=== PATIENT | female | born 1955 | race Caucasian/White ===

== ENCOUNTER 2019-03-07 11:43 | Inpatient (IN) | payer MEDICARE, BC ==
[2019-03-07] MEDS ORDERED: TYLENOL 325 MG PO PRN (12:48)
[2019-03-07] MEDS ORDERED: Lactated Ringers 1,000 ML IV SCH (13:00)
[2019-03-07 13:02] LABS: Hematocrit 32.8 % (35-47); Hemoglobin 11.1 gm/dl (12.0-16.0); Mean Cell Volume 88.2 fl (78-100); Mean Corpuscular Hemoglobin 29.8 pg (26-32); Mean Corpuscular Hgb Concent. 33.8 g/dl (32-36); Mean Platelet Volume 8.7 fl (6-9.5); Platelet Count 619 K/mm3 (150-450); Red Blood Count 3.72 M/mm3 (4.1-5.4); Red Cell Distribution Width 13.2 % (11.5-14.0); White Blood Count 15.3 K/mm3 (4.0-10.5)
[2019-03-07] MEDS: solu-MEDROL 40 MG IV SCH ×2 (13:06→22:01)
[2019-03-07 13:09] LABS: Appearance CLEAR (CLEAR); Bacteria RARE /HPF (NEGATIVE); Bilirubin NEGATIVE (NEGATIVE); Blood SMALL Ery/ul (0-5); Glucose NEGATIVE (NEGATIVE); Ketones NEGATIVE (NEGATIVE); Leukocyte Esterase NEGATIVE (NEGATIVE); Mucus SLIGHT /HPF (NEGATIVE); Nitrite NEGATIVE (NEGATIVE); Protein,Urine Dip 100 (Negative); Specific Gravity 1.009 (1.005-1.025); Urobilinogen NEGATIVE mg/dL (0-1)
[2019-03-07] MEDS: ROCEPHIN 1 Gm-D5w 50 ml Bag** 1 G/50 ML IVPB IV SCH (13:13)
[2019-03-07 13:26] LABS: ALBUMIN 3.6 g/dL (3.5-5.0); ALKALINE PHOSPHATASE 245 U/L (38-126); ANION GAP 22.8 MEQ/L (5-15); BLOOD UREA NITROGEN 9 mg/dL (7-17); CHLORIDE 91 mmol/L (98-107); Calcium 8.8 mg/dL (8.4-10.2); Carbon Dioxide 18 mmol/L (22-30); Creatinine 1 0.44 mg/dL (0.52-1.04); Glucose 158 mg/dL (74-106); Potassium 4.4 mmol/L (3.5-5.1); SGOT/AST 72 U/L (14-36); SGPT/ALT 91 U/L (0-35); SODIUM 128 mmol/L (137-145); Total Protein 7.2 g/dL (6.3-8.2)
[2019-03-07 14:07] LABS: Lymphocytes 12 % (24-44); Monocyte 3 % (0.0-12.0); Neutrophils 85 % (36.0-66.0); Total Cells Counted 100
[2019-03-07 14:09] LABS: Platelet Estimate NORMAL (NORMAL)
[2019-03-07] MEDS: PROVENTIL 2.5 MG/3 ML NEB IH SCH ×2 (14:47→20:29)
[2019-03-07] MEDS: Zithromax 500 MG/ 250 ML NaCl Premix 500 MG/250 ML IVPB IV SCH (15:14)
[2019-03-07 15:23] LABS: Lactic Acid 2.8 (0.4-2.0)
[2019-03-07] MEDS ORDERED: Sodium Chloride 0.9% 1000 ML 1,000 ML IV STA (16:54)
[2019-03-07] MEDS: Sodium Chloride 0.9% 1000 ML 1,000 ML IV SCH ×2 (17:33→23:19)
[2019-03-07] MEDS ORDERED: APRESOLINE 20 MG/ML INJ IV PRN (17:40)
--- NOTE | 2019-03-07 17:40 | PCM.HP ---
History of Present Illness - Chief Complaint Chief Complaint: lingular pneumonia failed o/p History of Present Illness: is a 64 year old female pt with no local MD, healthy, who was seen in today and admitted for pneumonia. She has no previous hx lung dz and has not been a smoker. Nine days ago she started running temp to 101.8. One week ago she was seen in clinic by pam Calderon with bronchitis and sent home with keflex, which she has been taking TID. She has been having cough and decreased appetite. Some diarrhea over the past 2 days. Wheezing x 2 d. In her CXR showed pna so I was called for direct admission. - Review of Systems Respiratory: Cough, Wheezing Abdominal/Gastrointestinal: Diarrhea, Appetite Changes All Other Systems: Reviewed and Negative Medications & Allergies Home Medications: Home Medication List Cephalexin Mh 500 mg [Keflex 500 mg] 1 cap PO TID 03/07/19 [History Confirmed 03/07/19] Multivitamin W-Minerals/Lutein [Centrum Silver Tablet] 1 tab PO DAILY 03/07/19 [ History Confirmed 03/07/19] Allergies/Adverse Reactions: Allergies Allergy/AdvReac Type Severity Reaction Status Date / Time ampicillin AdvReac Difficulty Verified 03/07/19 13:06 Breathing erythromycin base AdvReac Stomach Verified 03/07/19 13:06 Cramps Penicillins AdvReac Verified 03/07/19 13:35 - Past Medical History Past Medical History: Yes Neurological History: No Pertinent History ENT History: No Pertinent History Cardiac History: Hypertension Respiratory History: Bronchitis, Pneumonia Endocrine Medical History: No Pertinent History Musculoskelatal History: Arthritis GI Medical History: No Pertinent History History: Other Pyscho-Social History: No Pertinent History Reproductive Disorders: Other Comment: renal calculi; cervical dysplasia; total ankle dislocation (left) - Female History Are you now?: No - Past Surgical History Past Surgical History: Yes Neuro Surgical History: No Pertinent History Cardiac History: No Pertinent History Respiratory Surgery: No Pertinent History GI Surgical History: No Pertinent History Genitourinary Surgical Hx: No Pertinent History Musculskeletal Surgical Hx: Orthopedic Surgery Female Surgical History: Dilation & Curettage Other Surgical History: ankle surgery - Social History Smoking Status: Never smoker Exposure to second hand smoke: No Alcohol: Rarely Drug Use: none - Physical Exam Vital Signs: Vital Signs - 24 hr Temp Pulse Resp BP Pulse Ox 03/07/19 16:14 98.6 F 106 H 20 166/75 94 L 03/07/19 14:50 103 H 18 96 03/07/19 13:41 100.9 F 123 H 20 175/89 90 L 03/07/19 12:33 100.9 F 90 20 175/89 90 L General Appearance: no apparent distress, alert Neurologic Exam: oriented x 3, cooperative Eye Exam: eyes nml inspection Ears, Nose, Throat Exam: moist mucous membranes Neck Exam: normal inspection, non-tender, No lymphadenopathy Respiratory Exam: lungs clear, diminished breath sounds, wheezing (faint scattered), No crackles/rales, No rhonchi Cardiovascular Exam: regular rate/rhythm, normal heart sounds, No murmur Gastrointestinal/Abdomen Exam: soft, normal bowel sounds, No tenderness, No distention, No mass, No guarding, No rebound Back Exam: normal inspection, No CVA tenderness, No rash Extremity Exam: normal inspection, No pedal edema, No swelling Skin Exam: normal color, warm, dry, No rash Results - Labs Lab/Micro Results: Lab Results-Last 24 Hours 03/07/19 03/07/19 03/07/19 Range/Units 12:13 12:55 12:55 WBC 15.3 H (4.0-10.5) K/mm3 RBC 3.72 L (4.1-5.4) M/mm3 Hgb 11.1 L (12.0-16.0) gm/dl Hct 32.8 L (35-47) % MCV 88.2 (78-100) fl MCH 29.8 (26-32) pg MCHC 33.8 (32-36) g/dl RDW 13.2 (11.5-14.0) % Plt Count 619 H (150-450) K/mm3 MPV 8.7 (6-9.5) fl Segmented Neutrophils 85 H (36.0-66.0) % Lymphocytes (Manual) 12 L (24-44) % Monocytes (Manual) 3 (0.0-12.0) % Platelet Estimate NORMAL (NORMAL) RBC Morphology NORMAL Sodium 128 L (137-145) mmol/L Potassium 4.4 (3.5-5.1) mmol/L Chloride 91 L (98-107) mmol/L Carbon Dioxide 18 L (22-30) mmol/L Anion Gap 22.8 H (5-15) MEQ/L BUN 9 (7-17) mg/dL Creatinine 0.44 L (0.52-1.04) mg/dL Estimated GFR > 60.0 ML/MIN Glucose 158 H (74-106) mg/dL Lactic Acid (0.4-2.0) Calcium 8.8 (8.4-10.2) mg/dL Total Bilirubin 0.80 (0.2-1.3) mg/dL AST 72 H (14-36) U/L ALT 91 H (0-35) U/L Alkaline Phosphatase 245 H (38-126) U/L Serum Total Protein 7.2 (6.3-8.2) g/dL Albumin 3.6 (3.5-5.0) g/dL Urine Color YELLOW (YELLOW) Urine Appearance CLEAR (CLEAR) Urine pH 5.0 (5-6) Ur Specific Penelope 1.009 (1.005-1.025) Urine Protein 100 (Negative) Urine Ketones NEGATIVE (NEGATIVE) Urine Blood SMALL (0-5) Galileo/ul Urine Nitrite NEGATIVE (NEGATIVE) Urine Bilirubin NEGATIVE (NEGATIVE) Urine Urobilinogen NEGATIVE (0-1) mg/dL Ur Leukocyte Esterase NEGATIVE (NEGATIVE) Urine WBC (Auto) 3-5 (0-5) /HPF Urine RBC (Auto) 3-5 (0-2) /HPF U Epithel Cells (Auto) NONE (FEW) /HPF Urine Bacteria (Auto) RARE (NEGATIVE) /HPF Urine Mucus (Auto) SLIGHT (NEGATIVE) /HPF Urine Culture Reflexed YES (NO) Urine Glucose NEGATIVE (NEGATIVE) mg/dL 03/07/19 Range/Units 15:15 WBC (4.0-10.5) K/mm3 RBC (4.1-5.4) M/mm3 Hgb (12.0-16.0) gm/dl Hct (35-47) % MCV (78-100) fl MCH (26-32) pg MCHC (32-36) g/dl RDW (11.5-14.0) % Plt Count (150-450) K/mm3 MPV (6-9.5) fl Segmented Neutrophils (36.0-66.0) % Lymphocytes (Manual) (24-44) % Monocytes (Manual) (0.0-12.0) % Platelet Estimate (NORMAL) RBC Morphology Sodium (137-145) mmol/L Potassium (3.5-5.1) mmol/L Chloride (98-107) mmol/L Carbon Dioxide (22-30) mmol/L Anion Gap (5-15) MEQ/L BUN (7-17) mg/dL Creatinine (0.52-1.04) mg/dL Estimated GFR ML/MIN Glucose (74-106) mg/dL Lactic Acid 2.8 H (0.4-2.0) Calcium (8.4-10.2) mg/dL Total Bilirubin (0.2-1.3) mg/dL AST (14-36) U/L ALT (0-35) U/L Alkaline Phosphatase (38-126) U/L Serum Total Protein (6.3-8.2) g/dL Albumin (3.5-5.0) g/dL Urine Color (YELLOW) Urine Appearance (CLEAR) Urine pH (5-6) Ur Specific Penelope (1.005-1.025) Urine Protein (Negative) Urine Ketones (NEGATIVE) Urine Blood (0-5) Galileo/ul Urine Nitrite (NEGATIVE) Urine Bilirubin (NEGATIVE) Urine Urobilinogen (0-1) mg/dL Ur Leukocyte Esterase (NEGATIVE) Urine WBC (Auto) (0-5) /HPF Urine RBC (Auto) (0-2) /HPF U Epithel Cells (Auto) (FEW) /HPF Urine Bacteria (Auto) (NEGATIVE) /HPF Urine Mucus (Auto) (NEGATIVE) /HPF Urine Culture Reflexed (NO) Urine Glucose (NEGATIVE) mg/dL - Other Procedures and Tests Respiratory Therapy 03/07/19 07:00 Peak Expiratory Flow Rate DAILY 03/07/19 12:08 Oxygen Nasal Cannula 2 lpm 03/08/19 07:00 Respiratory Therapy Assessment DAILY Assessment/Plan (1) Pneumonia Current Visit: Yes Status: Acute Code(s): J18.9 - PNEUMONIA, UNSPECIFIED ORGANISM (2) Dehydration Current Visit: Yes Status: Acute Assessment & Plan: CO2 is 18, but her renal function is preserved. Giving 1 L NS bolus then 100cc/ hr all night and recheck in a.m. Code(s): E86.0 - DEHYDRATION (3) Elevated liver enzymes Current Visit: Yes Status: Acute Assessment & Plan: I think likely related to the dehydration. recheck in a.m. Code(s): R74.8 - ABNORMAL LEVELS OF OTHER SERUM ENZYMES
[2019-03-07 18:27] LABS: INFLUENZA A NEGATIVE (NEGATIVE); INFLUENZA B NEGATIVE (NEGATIVE); RESPIRATORY SYNCTIAL VIRUS NEGATIVE (Negative)
[2019-03-08 05:00] LABS: Hematocrit 32.1 % (35-47); Hemoglobin 10.6 gm/dl (12.0-16.0); Mean Cell Volume 89.9 fl (78-100); Mean Platelet Volume 8.6 fl (6-9.5); Platelet Count 605 K/mm3 (150-450); Red Blood Count 3.57 M/mm3 (4.1-5.4); Red Cell Distribution Width 13.2 % (11.5-14.0)
[2019-03-08 05:01] LABS: Mean Corpuscular Hemoglobin 29.6 pg (26-32)
[2019-03-08 05:06] LABS: ALBUMIN 3.5 g/dL (3.5-5.0); ALKALINE PHOSPHATASE 222 U/L (38-126); ANION GAP 17.6 MEQ/L (5-15); BLOOD UREA NITROGEN 8 mg/dL (7-17); CHLORIDE 100 mmol/L (98-107); Calcium 9.4 mg/dL (8.4-10.2); Carbon Dioxide 23 mmol/L (22-30); Creatinine 1 0.42 mg/dL (0.52-1.04); Direct Bilirubin 0.3 mg/dL (0.0-0.4); Glucose 270 mg/dL (74-106); Potassium 4.2 mmol/L (3.5-5.1); SGOT/AST 54 U/L (14-36); SGPT/ALT 102 U/L (0-35); Total Protein 7.3 g/dL (6.3-8.2)
[2019-03-08 05:11] LABS: SODIUM 136 mmol/L (137-145)
[2019-03-08] MEDS: solu-MEDROL 40 MG IV SCH ×3 (05:54→21:26)
[2019-03-08] MEDS: PROVENTIL 2.5 MG/3 ML NEB IH SCH ×4 (07:27→19:48)
[2019-03-08] MEDS: ROCEPHIN 1 Gm-D5w 50 ml Bag** 1 G/50 ML IVPB IV SCH (10:14)
[2019-03-08] MEDS: ENOXAPARIN SODIUM SQ SCH (14:05)
[2019-03-08] MEDS: Sodium Chloride 0.9% 1000 ML 1,000 ML IV SCH (14:09)
[2019-03-08] MEDS: Zithromax 500 MG/ 250 ML NaCl Premix 500 MG/250 ML IVPB IV SCH (14:10)
--- NOTE | 2019-03-08 15:54 | PCM.NOTE ---
Date and Time: 03/08/19 1545 Subjective Assessment: Has tmax 100.9 in the past 24 hours. Additionally, she woke up with a "hot flash" overnight. Has been wearing 2L NC off and on for the past 24 h. Some increased bp, but this morning was 139/65. - Review of Systems Constitutional: Fever Respiratory: Cough Objective Exam General Appearance: no apparent distress, alert Neurologic Exam: oriented x 3, cooperative Skin Exam: normal color, warm, dry, No rash Eye Exam: eyes nml inspection Ears, Nose, Throat Exam: moist mucous membranes Neck Exam: normal inspection Respiratory Exam: normal breath sounds, rhonchi (RLL), No crackles/rales, No wheezing Cardiovascular Exam: regular rate/rhythm, normal heart sounds, No murmur Extremity Exam: normal inspection, No swelling, No tenderness OBJECTIVE DATA Vital Signs: Vital Signs - 24 hr Temp Pulse Resp BP Pulse Ox 03/08/19 15:32 77 18 93 L 03/08/19 12:00 97.8 F 77 18 134/62 92 L 03/08/19 07:22 96.6 F 88 18 139/65 97 03/08/19 07:00 80 18 95 03/08/19 04:00 98.3 F 77 18 159/87 94 L 03/08/19 00:17 97.7 F 76 19 138/64 91 L 03/07/19 20:32 78 20 93 L 03/07/19 20:30 98.3 F 90 18 153/72 96 03/07/19 16:14 98.6 F 106 H 20 166/75 94 L Oxygen-Last 24 hours O2 Percentage 2 Liters = 28% Pain Assessment - Last Documented Pain Intensity 0 Pain Scale Used 0-10 Pain Scale Intake and Output: Intake & Output 03/06/19 03/07/19 03/08/19 03/09/19 11:59 11:59 11:59 11:59 Intake Total 8091 Output Total 6600 Balance 1491 Weight 71.1 kg Lab Results: Lab Results-Last 24 Hours 03/07/19 03/07/19 03/08/19 Range/Units 17:36 17:45 04:56 WBC 10.0 (4.0-10.5) K/mm3 RBC 3.57 L (4.1-5.4) M/mm3 Hgb 10.6 L (12.0-16.0) gm/dl Hct 32.1 L (35-47) % MCV 89.9 (78-100) fl MCH 29.6 (26-32) pg MCHC 33.0 (32-36) g/dl RDW 13.2 (11.5-14.0) % Plt Count 605 H (150-450) K/mm3 MPV 8.6 (6-9.5) fl Sodium (137-145) mmol/L Potassium (3.5-5.1) mmol/L Chloride (98-107) mmol/L Carbon Dioxide (22-30) mmol/L Anion Gap (5-15) MEQ/L BUN (7-17) mg/dL Creatinine (0.52-1.04) mg/dL Estimated GFR ML/MIN Glucose (74-106) mg/dL Hemoglobin A1c (4.5-6.0) % Lactic Acid 1.8 (0.4-2.0) Calcium (8.4-10.2) mg/dL Total Bilirubin (0.2-1.3) mg/dL Direct Bilirubin (0.0-0.4) mg/dL AST (14-36) U/L ALT (0-35) U/L Alkaline Phosphatase (38-126) U/L Serum Total Protein (6.3-8.2) g/dL Albumin (3.5-5.0) g/dL Influenza Type A Ag NEGATIVE (NEGATIVE) Influenza Type B Ag NEGATIVE (NEGATIVE) RSV (PCR) NEGATIVE (Negative) 03/08/19 03/08/19 Range/Units 04:56 Unknown WBC (4.0-10.5) K/mm3 RBC (4.1-5.4) M/mm3 Hgb (12.0-16.0) gm/dl Hct (35-47) % MCV (78-100) fl MCH (26-32) pg MCHC (32-36) g/dl RDW (11.5-14.0) % Plt Count (150-450) K/mm3 MPV (6-9.5) fl Sodium 136 L D (137-145) mmol/L Potassium 4.2 (3.5-5.1) mmol/L Chloride 100 (98-107) mmol/L Carbon Dioxide 23 (22-30) mmol/L Anion Gap 17.6 H (5-15) MEQ/L BUN 8 (7-17) mg/dL Creatinine 0.42 L (0.52-1.04) mg/dL Estimated GFR > 60.0 ML/MIN Glucose 270 H (74-106) mg/dL Hemoglobin A1c 6.18 H (4.5-6.0) % Lactic Acid (0.4-2.0) Calcium 9.4 (8.4-10.2) mg/dL Total Bilirubin 0.40 (0.2-1.3) mg/dL Direct Bilirubin 0.3 (0.0-0.4) mg/dL AST 54 H (14-36) U/L ALT 102 H (0-35) U/L Alkaline Phosphatase 222 H (38-126) U/L Serum Total Protein 7.3 (6.3-8.2) g/dL Albumin 3.5 (3.5-5.0) g/dL Influenza Type A Ag (NEGATIVE) Influenza Type B Ag (NEGATIVE) RSV (PCR) (Negative) Assessment/Plan (1) Pneumonia Current Visit: Yes Status: Acute Qualifiers: Pneumonia type: due to unspecified organism Laterality: left Lung location: lower lobe of lung Qualified Code(s): J18.1 - Lobar pneumonia, unspecified organism Assessment & Plan: On rocephin and zithromax day #2. Improved, but still with some O2 requirement and fever. May be able to d/c to home tomorrow if that resolves. Code(s): J18.9 - PNEUMONIA, UNSPECIFIED ORGANISM (2) Dehydration Current Visit: Yes Status: Resolved Code(s): E86.0 - DEHYDRATION (3) Elevated liver enzymes Current Visit: Yes Status: Acute Assessment & Plan: AST slightly lower, ALT slightly higher. May be related to illness. May merit further workup outpatient. Code(s): R74.8 - ABNORMAL LEVELS OF OTHER SERUM ENZYMES (4) Hyperglycemia Current Visit: Yes Status: Acute Assessment & Plan: A.m. BS was 270 - her a1c is 6.18. Will need to address with pt in a.m. Code(s): R73.9 - HYPERGLYCEMIA, UNSPECIFIED
[2019-03-09] MEDS: Sodium Chloride 0.9% 1000 ML 1,000 ML IV SCH (02:34)
[2019-03-09 04:49] LABS: Hemoglobin 10.5 gm/dl (12.0-16.0); Mean Cell Volume 91.4 fl (78-100); Mean Corpuscular Hgb Concent. 32.8 g/dl (32-36); Mean Platelet Volume 8.7 fl (6-9.5); Platelet Count 729 K/mm3 (150-450); Red Cell Distribution Width 13.6 % (11.5-14.0); White Blood Count 18.4 K/mm3 (4.0-10.5)
[2019-03-09 05:04] LABS: ALBUMIN 3.3 g/dL (3.5-5.0); ALKALINE PHOSPHATASE 183 U/L (38-126); ANION GAP 19.2 MEQ/L (5-15); BLOOD UREA NITROGEN 12 mg/dL (7-17); CHLORIDE 103 mmol/L (98-107); Calcium 9.5 mg/dL (8.4-10.2); Carbon Dioxide 21 mmol/L (22-30); Creatinine 1 0.42 mg/dL (0.52-1.04); Glucose 216 mg/dL (74-106); Potassium 4.5 mmol/L (3.5-5.1); SGOT/AST 72 U/L (14-36); SGPT/ALT 126 U/L (0-35); SODIUM 139 mmol/L (137-145); Total Protein 6.9 g/dL (6.3-8.2)
[2019-03-09] MEDS: solu-MEDROL 40 MG IV SCH ×2 (05:56→13:03)
[2019-03-09] MEDS: PROVENTIL 2.5 MG/3 ML NEB IH SCH ×3 (07:21→14:57)
--- NOTE | 2019-03-09 09:02 | PCM.DS ---
Discharge Summary Date of Admission: 03/07/19 11:51 Admitting Physician: GERARDO ROSE Primary Care Provider: GERARDO ROSE Allergies Allergies ampicillin Adverse Reaction (Verified 03/07/19 13:06) Difficulty Breathing erythromycin base Adverse Reaction (Verified 03/07/19 13:06) Stomach Cramps Penicillins Adverse Reaction (Verified 03/07/19 13:35) Hospital Summary - Hospital Course Hospital Course: Pt is 64 yo female pt with no local MD who came to after failing a course of keflex and was dx with pneumonia. Over her stay she has had some intermittent oxygen requirement. Finshing 3d of rocephin and zithromax IV here, with IV solumedrol. She has improved steadily during her stay. No fever for the last 24h and no o2 requirement. Still having some cough. Rip po. Did have an elevated BP this morning of 168/90 after her blood draw, otherwise 130s-150s systolic. Will be sent home on po cefdinir and prednisone. F/u with me in 1 wk. - Vitals & Intake/Output Vital Signs: Vital Signs Temperature 97.6 F 03/09/19 07:36 Pulse Rate 76 03/09/19 07:36 Respiratory Rate 17 03/09/19 07:36 Blood Pressure 172/76 03/09/19 07:36 O2 Sat by Pulse Oximetry 93 L 03/09/19 07:36 Oxygen-Last Documented O2 Percentage 2 Liters = 28% Intake & Output: Intake & Output 03/06/19 03/07/19 03/08/19 03/09/19 11:59 11:59 11:59 11:59 Intake Total 8091 7731 Output Total 8910 5550 Balance 1491 2181 Weight 71.1 kg - Lab Result Diagrams: 03/09/19 04:51 03/09/19 04:51 Lab Results-Last 24 Hrs: Lab Results-Last 24 Hours 03/08/19 03/09/19 03/09/19 Range/Units Unknown 04:51 04:51 WBC 18.4 H (4.0-10.5) K/mm3 RBC 3.50 L (4.1-5.4) M/mm3 Hgb 10.5 L (12.0-16.0) gm/dl Hct 32.0 L (35-47) % MCV 91.4 (78-100) fl MCH 30.0 (26-32) pg MCHC 32.8 (32-36) g/dl RDW 13.6 (11.5-14.0) % Plt Count 729 H (150-450) K/mm3 MPV 8.7 (6-9.5) fl Sodium 139 (137-145) mmol/L Potassium 4.5 (3.5-5.1) mmol/L Chloride 103 (98-107) mmol/L Carbon Dioxide 21 L (22-30) mmol/L Anion Gap 19.2 H (5-15) MEQ/L BUN 12 (7-17) mg/dL Creatinine 0.42 L (0.52-1.04) mg/dL Estimated GFR > 60.0 ML/MIN Glucose 216 H (74-106) mg/dL Hemoglobin A1c 6.18 H (4.5-6.0) % Calcium 9.5 (8.4-10.2) mg/dL Total Bilirubin 0.30 (0.2-1.3) mg/dL AST 72 H (14-36) U/L ALT 126 H (0-35) U/L Alkaline Phosphatase 183 H (38-126) U/L Serum Total Protein 6.9 (6.3-8.2) g/dL Albumin 3.3 L (3.5-5.0) g/dL Micro Results-Entire Visit: Microbiology 03/07/19 12:13 Urine Culture - Preliminary Clean Catch Midstream NO GROWTH TO DATE - Procedures and Test Procedures and Tests throughout Hospitalization: Therapy Orders & Screens 03/07/19 07:00 Peak Expiratory Flow Rate DAILY Comment: Reason For Exam: Diagnosis: lingular pneumonia failed o/p 03/07/19 12:08 Oxygen Nasal Cannula 2 lpm Comment: O2 TO KEEP SATS >90% Respiratory Nebulizer QID Comment: ALBUTEROL 03/08/19 07:00 Respiratory Therapy Assessment DAILY Comment: Diagnosis: lingular pneumonia failed o/p Discharge Exam General Appearance: no apparent distress, alert Neurologic Exam: oriented x 3, cooperative Eye Exam: eyes nml inspection Ears, Nose, Throat Exam: moist mucous membranes Neck Exam: normal inspection Respiratory Exam: normal breath sounds, rhonchi (bilat bases), No crackles/rales , No wheezing Cardiovascular Exam: regular rate/rhythm, normal heart sounds, No murmur Back Exam: normal inspection, No rash Extremity Exam: normal inspection, No pedal edema, No swelling Skin Exam: normal color, warm, dry, No rash Final Diagnosis/Problem List - Final Discharge Diagnosis/Problem (1) Pneumonia Current Visit: Yes Status: Acute Assessment & Plan: Much improved. Home after today's dose of antibiotics (rocephin and zithromax IV day #3). Code(s): J18.9 - PNEUMONIA, UNSPECIFIED ORGANISM (2) Dehydration Current Visit: Yes Status: Resolved Code(s): E86.0 - DEHYDRATION (3) Elevated liver enzymes Current Visit: Yes Status: Acute Assessment & Plan: Will need CMP in 1 week. May need liver u/s if still elevated. Code(s): R74.8 - ABNORMAL LEVELS OF OTHER SERUM ENZYMES (4) Hyperglycemia Current Visit: Yes Status: Acute Code(s): R73.9 - HYPERGLYCEMIA, UNSPECIFIED (5) Thrombocytosis Current Visit: Yes Status: Acute Assessment & Plan: Needs further OP evaluation. Recheck in 1 week. - Discharge Disposition: Home, Self-Care Condition: Good Prescriptions: New Prednisone 20 mg [Deltasone 20 mg] 20 mg PO DAILY #17 tablet Cefdinir [Omnicef] 300 mg PO BID #14 capsule Albuterol Sulfate [Ventolin Hfa] 18 gm IH QID #1 [email or web address] Continue Multivitamin W-Minerals/Lutein [Centrum Silver Tablet] 1 tab PO DAILY Discontinued Cephalexin Mh 500 mg [Keflex 500 mg] 1 cap PO TID Follow up with: GERARDO ROSE [Primary Care Provider] - 1 Week
[2019-03-09] MEDS: ROCEPHIN 1 Gm-D5w 50 ml Bag** 1 G/50 ML IVPB IV SCH (11:13)
[2019-03-09 12:27] VITALS: BP 158/98
[2019-03-09] MEDS: Zithromax 500 MG/ 250 ML NaCl Premix 500 MG/250 ML IVPB IV SCH (13:03)
[2019-03-09] MEDS: ENOXAPARIN SODIUM SQ SCH (13:15)
[2019-03-09 15:02] VITALS: PULSE 79; O2SAT 96
== END 2019-03-09 16:15 | disposition home or self-care (01) | DRG 195 ==
LOC: MED SURG 11:51 → OBSVTOIN 11:51
PROVIDERS: ADMIT Family Medicine; ATTEND Family Medicine
DX: J18.9 Pneumonia, unspecified organism (principal); E86.0 Dehydration; R19.7 Diarrhea, unspecified; R74.8 Abnormal levels of other serum enzymes; R73.9 Hyperglycemia, unspecified; I10 Essential (primary) hypertension; D47.3 Essential (hemorrhagic) thrombocythemia; Z79.899 Other long term (current) drug therapy
CPT/HCPCS: 36415; 80048; 80053; 80076; 81001; 83036; 83605; 85025; 85027; 87086; 87631; 94150; 94640; 94760; J0456; J0696; J2920; J7609; A9270-GY

== ENCOUNTER 2021-02-20 16:22 | Emergency (ER) | payer MEDICARE, OTHER ==
[2021-02-20 17:19] VITALS: O2SAT 98
[2021-02-20 18:46] VITALS: BP 176/92; PULSE 88
--- NOTE | 2021-02-20 18:47 | ERPHSYRPT ---
- History of Present Illness Time Seen by Provider: 02/20/21 16:52 Source: patient Exam Limitations: no limitations Patient Subjective Stated Complaint: Pt states I was using hedge trimmers and I punctured my index finger on my left hand." Triage Nursing Assessment: Pt presented alert and oriented X 3, skin wpd Pt ambulates with an upright steady gait, t has an evulsion noted to the index finger on her left hand. Physician History: 66 years old right-handed dominant female presented to the ER after she accidentally had a small cut/incised while trimming trees on the left index finger. There was bleeding initially but stopped prior to applying pressure. No difficulty movements of finger at interphalangeal and metacarpophalangeal joint. No numbness or tingling. Not on any blood thinners. Up-to-date with tetanus. Occurred: hours ago (1) Method of Injury: incised Quality: sharpness Severity of Pain-Max: moderate Severity of Pain-Current: mild Extremities Pain Location: 2nd finger: left Modifying Factors: Worsens With: movement Associated Symptoms: none Allergies/Adverse Reactions: ampicillin Adverse Reaction (Verified 03/07/19 13:06) Difficulty Breathing erythromycin base Adverse Reaction (Verified 03/07/19 13:06) Stomach Cramps Penicillins Adverse Reaction (Verified 03/07/19 13:35) Home Medications: Multivitamin W-Minerals/Lutein [Centrum Silver Tablet] 1 tab PO DAILY 03/07/19 [History] Hx Tetanus, Diphtheria Vaccination/Date Given: Yes (2015) Hx Influenza Vaccination/Date Given: No Hx Pneumococcal Vaccination/Date Given: No Immunizations Up to Date: Yes Travel Risk - International Travel Have you traveled outside of the country in past 3 weeks: No - Coronavirus Screening Are you exhibiting any of the following symptoms?: No Close contact with a COVID-19 positive Pt in past 14-21 Days: No - Vaccine Status Have you recieved a Covid-19 vaccination: Yes Mate Fourth: Bahu - Vaccination Dates Date of 2cond Vaccination (if applicable): 07/2020 - Review of Systems Constitutional: No Symptoms Ears, Nose, & Throat: No Symptoms Respiratory: No Symptoms Cardiac: No Symptoms Musculoskeletal: Injury Skin: Skin Lesions Neurological: No Symptoms Endocrine: No Symptoms Hematologic/Lymphatic: No Symptoms - Past Medical History Pertinent Past Medical History: Yes Neurological History: No Pertinent History ENT History: No Pertinent History Cardiac History: Hypertension Respiratory History: Bronchitis, Pneumonia Endocrine Medical History: No Pertinent History Musculoskeletal History: Arthritis GI Medical History: No Pertinent History History: Other Psycho-Social History: No Pertinent History Female Reproductive Disorders: Other Other Medical History: renal calculi; cervical dysplasia; total ankle dislocation (left) - Past Surgical History Past Surgical History: Yes Neuro Surgical History: No Pertinent History Cardiac: No Pertinent History Respiratory: No Pertinent History Gastrointestinal: No Pertinent History Genitourinary: No Pertinent History Musculoskeletal: Orthopedic Surgery Female Surgical History: Dilation & Curettage Other Surgical History: ankle surgery - Social History Smoking Status: Never smoker Exposure to second hand smoke: No Drug Use: none Patient Lives Alone: No - Nursing Vital Signs Nursing Vital Signs: Initial Vital Signs Temperature 98.1 F 02/20/21 17:12 Pulse Rate 82 02/20/21 17:12 Respiratory Rate 20 02/20/21 17:12 Blood Pressure 189/91 02/20/21 17:12 O2 Sat by Pulse Oximetry 98 02/20/21 17:12 Pain Scale Pain Intensity 1 - Physical Exam General Appearance: no apparent distress Neck Exam: normal inspection, full range of motion Cardiovascular/Respiratory Exam: normal breath sounds, regular rate/rhythm Elbow/Forearm Exam: normal inspection, non-tender, no evidence of injury Wrist Exam: normal inspection, non-tender, no evidence of injury, normal ROM Hand Exam: laceration (2 cm flap laceration left index finger without any active spurting, minimal oozing. Distal neurovascular intact. Intact range of motion interphalangeal joints and metacarpophalangeal joint.) Neuro/Tendon Exam: normal sensation, normal motor functions, normal tendon functions Mental Status Exam: alert, oriented x 3, cooperative Skin Exam: normal color SpO2 Interpretation: normal SpO2: 98 O2 Delivery: Room Air Procedures - Laceration/Wound Repair Left Finger Time of Procedure: 18:45 Wound Location: Left Wound Length (cm): 2 Wound's Depth, Shape: superficial Wound Explored: clean Irrigated: Yes Hibiclens Prep: Yes Wound Repaired With: Steri-strips, Dermabond Sterile Dressing Applied?: Yes Splint Applied?: Yes - Progress Progress: improved Progress Note: 02/20/21 18:46 Superficial flap laceration, discussed with patient about suture versus glue with Steri-Strips and she wants to glue with Steri-Strips which is repaired. She is up-to-date with tetanus. Has intact range of motion, and intact distal neurovascular. Counseled pt/family regarding: diagnosis, need for follow-up - Departure Departure Disposition: Home Clinical Impression: Finger laceration Qualifiers: Encounter type: initial encounter Finger: index finger Damage to nail status: without damage Foreign body presence: without foreign body Laterality: left Qualified Code(s): S61.211A - Laceration without foreign body of left index finger without damage to nail, initial encounter Condition: Stable Critical Care Time: No Referrals: GERARDO PARRA [Primary Care Provider] - Follow Up with PCP/3 days Instructions: Laceration Repair With Glue (DC) Additional Instructions: Take Tylenol/ibuprofen as needed for pain. Keep it clean. Avoid exertional activities with left hand. Follow-up with primary care for reevaluation. Return to ER for increasing pain, swelling, redness, discharge, difficulty movements of finger.
== END 2021-02-20 18:57 | disposition home or self-care (01) ==
LOC: ED 16:22
DX: S61.211A Laceration without foreign body of left index finger without damage to nail, initial encounter (principal); W29.3XXA Contact with powered garden and outdoor hand tools and machinery, initial encounter
CPT/HCPCS: 12001; 99283